=== PATIENT | male | born 1960 | race Caucasian/White ===

== ENCOUNTER 2021-01-01 13:14 | Inpatient (IN) | payer MEDICARE, MEDICAID ==
[~2021-01-01] VITALS: Ht 157.5 cm; Wt 63.5 kg
[2021-01-01] MEDS ORDERED: KEPPRA (13:19)
[2021-01-01] MEDS ORDERED: LASIX (13:19)
[2021-01-01] MEDS ORDERED: IBUPROFEN 600MG TABLET PO ONE (13:45)
[2021-01-01 14:33] LABS: HEMATOCRIT. 36.8 % (42.0-52.0); HEMOGLOBIN. 12.6 g/dL (14.0-18.0); MEAN CORPUSCULAR HEMOGLOBIN 35.4 pg (28.0-32.0); MEAN CORPUSCULAR VOLUME 103.4 fL (80.0-94.0); RED BLOOD CELL COUNT 3.56 mill/uL (4.7-6.1); RED CELL DISTRIBUTION WIDTH 17.6 % (11.6-14.6)
[2021-01-01 14:40] LABS: CHLORIDE 106 mEq/L (98-107)
[2021-01-01 14:42] LABS: INR 1.6; PROTHROMBIN TIME 16.9 sec (9.6-11.0)
[2021-01-01 15:04] LABS: PLATELET ESTIMATE DECREASED
[2021-01-01 15:06] LABS: PLATELET 61 x1000/uL (130-400)
[2021-01-01 18:04] LABS: CLARITY URINE CLEAR (CLEAR); COLOR URINE DARK YELLOW (YELLOW); KETONES URINE NEGATIVE (NEGATIVE); LEUKOCYTE ESTERASE URINE 1+ (NEGATIVE); NITRITE URINE NEGATIVE (NEGATIVE); OCCULT BLOOD URINE NEGATIVE (NEGATIVE); PH URINE 6.5 (4.5-8.0); PROTEIN URINE NEGATIVE (NEGATIVE); SPECIFIC GRAVITY URINE 1.011 (1.005-1.030); UROBILINOGEN URINE 0.2 E.U./dL (0.2-1.0)
[2021-01-01] MEDS ORDERED: VANCOMYCIN 1 G PREMIX 200 ML IV ONE (18:45)
[2021-01-01] MEDS ORDERED: PIPERACILLIN/TAZ 3.375G PREMIX 50 ML IV ONE (18:45)
[2021-01-01 22:10] VITALS: BP 152/81
[2021-01-01] MEDS ORDERED: MORPHINE SULFATE 2 MG/ML CPJ (NOT FOR IM USE) IV PRN (23:00)
[2021-01-01] MEDS ORDERED: ENOXAPARIN 40MG/0.4ML SYR SUBCUT SCH (23:00)
[2021-01-01] MEDS ORDERED: LORAZEPAM 2MG/ML CPJ IV PRN (23:00)
[2021-01-01] MEDS ORDERED: CLONIDINE 0.1MG TABLET PO PRN (23:00)
[2021-01-01] MEDS ORDERED: HYDROCODONE/ACETAMINOPHEN 5/325MG TABLET PO PRN (23:00)
[2021-01-01] MEDS ORDERED: VANCOMYCIN 1 G PREMIX 200 ML IV SCH (23:00)
[2021-01-02] VITALS: BP 152/81
[2021-01-02] MEDS: SODIUM CHLORIDE 0.9% 1,000 ML IV SCH (00:43)
[2021-01-02] MEDS ORDERED: LACT10SO30 MT (00:47)
[2021-01-02] MEDS ORDERED: OMEP20CA14 MT (00:47)
[2021-01-02] MEDS ORDERED: LEVO50TA MT (00:47)
[2021-01-02] MEDS ORDERED: FURO-151 MT (00:47)
[2021-01-02] MEDS ORDERED: THIJ IM (00:47)
[2021-01-02] MEDS ORDERED: KEPP500 MT (00:47)
[2021-01-02] MEDS ORDERED: P20 MT (00:47)
[2021-01-02] MEDS: VANCOMYCIN 750 MG PREMIX 150 ML IV SCH ×3 (06:00→21:26)
[2021-01-02] MEDS ORDERED: ONDANSETRON HCL 4MG/2ML INJ IV PRN (06:30)
[2021-01-02] MEDS ORDERED: MAGNESIUM/ALUMINUM HYDROXIDE/SIMETHICONE 30ML UDC PO PRN (06:30)
[2021-01-02] MEDS ORDERED: DOCUSATE SODIUM 100MG CAPSULE PO PRN (06:30)
[2021-01-02] MEDS ORDERED: ACETAMINOPHEN 325MG TABLET PO PRN (06:30)
[2021-01-02 07:35] LABS: CHLORIDE 107 mEq/L (98-107)
[2021-01-02 07:39] LABS: PHOSPHORUS 3.4 mg/dL (2.5-4.9)
[2021-01-02 08:00] VITALS: BP 124/72
[2021-01-02 08:12] LABS: HEPATITIS B SURFACE ANTIGEN NEGATIVE
[2021-01-02 08:18] LABS: HEMATOCRIT. 32.3 % (42.0-52.0); HEMOGLOBIN. 11.2 g/dL (14.0-18.0); MEAN CORPUSCULAR HEMOGLOBIN 35.8 pg (28.0-32.0); MEAN CORPUSCULAR VOLUME 103.6 fL (80.0-94.0); MEAN PLATELET VOLUME 10.2 fl (7.4-10.4); RED BLOOD CELL COUNT 3.12 mill/uL (4.7-6.1); RED CELL DISTRIBUTION WIDTH 16.8 % (11.6-14.6)
[2021-01-02 08:40] LABS: HEPATITIS A AB IGM NEGATIVE (NEGATIVE)
[2021-01-02] MEDS ORDERED: FOLIC ACID 1MG TABLET PO SCH (09:00)
[2021-01-02 09:08] LABS: PLATELET 41 x1000/uL (130-400)
[2021-01-02] MEDS: LEVOTHYROXINE SODIUM 50MCG TABLET PO SCH (10:13)
[2021-01-02] MEDS: PANTOPRAZOLE SODIUM 40 MG/VIAL IV SCH (10:13)
[2021-01-02] MEDS: LEVETIRACETAM 500MG TABLET PO SCH ×2 (10:13→21:26)
[2021-01-02] MEDS: FUROSEMIDE 40MG TABLET PO SCH (10:14)
[2021-01-02] MEDS: THIAMINE HCL 100MG TABLET PO SCH (10:14)
[2021-01-02] MEDS: MULTIVITAMINS,THER W-MINERALS TABLET PO SCH (10:18)
[2021-01-02] MEDS: PREDNISONE 20MG TABLET PO SCH (10:19)
[2021-01-02 12:00] LABS: PLATELET ESTIMATE MARKEDLY DECREASED
[2021-01-02 16:00] VITALS: BP 123/80
[2021-01-02] MEDS: LACTULOSE 20G/30ML UDC PO SCH ×2 (18:32→21:26)
[2021-01-02] MEDS: PHYTONADIONE 10MG/ML AMP IM SCH (18:32)
[2021-01-02 21:13] LABS: CLARITY URINE CLEAR (CLEAR); COLOR URINE DARK YELLOW (YELLOW); KETONES URINE NEGATIVE (NEGATIVE); LEUKOCYTE ESTERASE URINE NEGATIVE (NEGATIVE); NITRITE URINE NEGATIVE (NEGATIVE); OCCULT BLOOD URINE NEGATIVE (NEGATIVE); PROTEIN URINE NEGATIVE (NEGATIVE); SPECIFIC GRAVITY URINE 1.011 (1.005-1.030); UROBILINOGEN URINE 0.2 E.U./dL (0.2-1.0)
[2021-01-02 21:33] LABS: *AMPHETAMINES SCREEN URINE NEGATIVE (NEGATIVE); *BARBITURATES SCREEN URINE NEGATIVE (NEGATIVE); *BENZODIAZEPINES SCREEN URINE NEGATIVE (NEGATIVE)
[2021-01-02 21:34] LABS: *COCAINE SCREEN URINE NEGATIVE (NEGATIVE); CANNABINOID URINE SCREEN NEGATIVE (NEGATIVE); METHADONE URINE SCREEN NEGATIVE (NEGATIVE); OPIATES URINE SCREEN NEGATIVE (NEGATIVE); PHENCYCLIDINE URINE SCREEN NEGATIVE (NEGATIVE)
[2021-01-02 23:40] VITALS: BP 129/78
[2021-01-03] VITALS: BP 125/72
[2021-01-03] MEDS: AZTREONAM 2 GM in DEXT 5% WATER 100 ML IV SCH ×2 (01:56→15:50)
[2021-01-03] MEDS ORDERED: AMIKACIN SULFATE 450 MG in SODIUM CHLORIDE 0.9% 100 ML IV NR (02:00)
[2021-01-03] MEDS: SODIUM CHLORIDE 0.9% 1,000 ML IV SCH ×2 (06:00→16:25)
[2021-01-03] MEDS: LACTULOSE 20G/30ML UDC PO SCH ×3 (06:00→21:39)
[2021-01-03] MEDS: LEVOTHYROXINE SODIUM 50MCG TABLET PO SCH (06:24)
[2021-01-03 08:55] LABS: HEMATOCRIT. 32.4 % (42.0-52.0); HEMOGLOBIN. 11.3 g/dL (14.0-18.0); MEAN CORPUSCULAR VOLUME 103.2 fL (80.0-94.0); RED BLOOD CELL COUNT 3.14 mill/uL (4.7-6.1); RED CELL DISTRIBUTION WIDTH 16.8 % (11.6-14.6)
[2021-01-03 09:00] LABS: CHLORIDE 109 mEq/L (98-107)
[2021-01-03 09:02] LABS: INR 1.8; PROTHROMBIN TIME 18.1 sec (9.6-11.0)
[2021-01-03] MEDS: PANTOPRAZOLE SODIUM 40 MG/VIAL IV SCH (09:03)
[2021-01-03] MEDS: PHYTONADIONE 10MG/ML AMP IM SCH (09:04)
[2021-01-03] MEDS: MULTIVITAMINS,THER W-MINERALS TABLET PO SCH (09:04)
[2021-01-03] MEDS: FOLIC ACID 1MG TABLET PO SCH (09:04)
[2021-01-03] MEDS: LEVETIRACETAM 500MG TABLET PO SCH ×2 (09:04→21:39)
[2021-01-03 09:05] LABS: PHOSPHORUS 3.4 mg/dL (2.5-4.9)
[2021-01-03] MEDS: FUROSEMIDE 40MG TABLET PO SCH (09:05)
[2021-01-03] MEDS: THIAMINE HCL 100MG TABLET PO SCH (09:05)
[2021-01-03] MEDS: PREDNISONE 20MG TABLET PO SCH (09:05)
[2021-01-03 09:06] LABS: LDL CHOLESTEROL 157 mg/dL (5-100)
[2021-01-03 09:08] LABS: HDL CHOLESTEROL 76 mg/dL (40-59)
[2021-01-03 09:10] LABS: TOTAL IRON BINDING CAPACITY 92 ug/dL (250-450)
[2021-01-03 09:18] LABS: FOLIC ACID (FOLATE) SERUM >20 ng/mL ng/mL (>5.38)
[2021-01-03 09:31] LABS: VITAMIN B12 SERUM >2000 pg/mL pg/mL (211-911)
[2021-01-03] MEDS ORDERED: POTASSIUM CHLORIDE 20MEQ TABLET SR PO SCH (09:45)
[2021-01-03 10:16] LABS: PLATELET 61 x1000/uL (130-400)
[2021-01-03 10:21] LABS: PLATELET ESTIMATE DECREASED
[2021-01-03 11:58] LABS: FERRITIN 1504 ng/mL (22-322)
[2021-01-03] MEDS ORDERED: LIDOCAINE HCL 1% 20ML VIAL (Pyxis) INJ ONE (12:45)
[2021-01-03] MEDS ORDERED: SODIUM BICARBONATE 4% (2.4MEQ) 5ML VIAL IV ONE (12:45)
[2021-01-03 20:00] VITALS: BP_SYST 124; BP_SYST 128; BP_DIAS 68; BP_DIAS 78
[2021-01-03] MEDS ORDERED: ENOXAPARIN 60MG/0.6ML SYR SUBCUT SCH (21:00)
[2021-01-04] VITALS: BP 124/78
[2021-01-04] MEDS: AZTREONAM 2 GM in DEXT 5% WATER 100 ML IV SCH ×2 (01:10→12:28)
[2021-01-04] MEDS: SODIUM CHLORIDE 0.9% 1,000 ML IV SCH ×2 (01:10→12:28)
[2021-01-04 04:00] VITALS: BP 120/78
[2021-01-04] MEDS: LACTULOSE 20G/30ML UDC PO SCH ×3 (06:28→21:07)
[2021-01-04] MEDS: LEVOTHYROXINE SODIUM 50MCG TABLET PO SCH (06:28)
[2021-01-04 06:38] LABS: INR 1.7; PROTHROMBIN TIME 17.5 sec (9.6-11.0)
[2021-01-04 06:40] LABS: HEMATOCRIT. 33.5 % (42.0-52.0); HEMOGLOBIN. 11.6 g/dL (14.0-18.0); MEAN CORPUSCULAR HEMOGLOBIN 35.8 pg (28.0-32.0); MEAN CORPUSCULAR VOLUME 103.6 fL (80.0-94.0); MEAN PLATELET VOLUME 9.5 fl (7.4-10.4); PLATELET 63 x1000/uL (130-400); RED BLOOD CELL COUNT 3.23 mill/uL (4.7-6.1); RED CELL DISTRIBUTION WIDTH 17.1 % (11.6-14.6)
[2021-01-04 07:55] LABS: CHLORIDE 112 mEq/L (98-107)
[2021-01-04 08:00] VITALS: BP 126/81
[2021-01-04] MEDS: MULTIVITAMINS,THER W-MINERALS TABLET PO SCH (10:17)
[2021-01-04] MEDS: PANTOPRAZOLE SODIUM 40 MG/VIAL IV SCH (10:17)
[2021-01-04] MEDS: THIAMINE HCL 100MG TABLET PO SCH (10:18)
[2021-01-04] MEDS: PREDNISONE 20MG TABLET PO SCH (10:18)
[2021-01-04] MEDS: LEVETIRACETAM 500MG TABLET PO SCH ×2 (10:18→21:02)
[2021-01-04] MEDS: FUROSEMIDE 40MG TABLET PO SCH (10:18)
[2021-01-04] MEDS: FOLIC ACID 1MG TABLET PO SCH (10:18)
[2021-01-04 10:50] LABS: PLATELET ESTIMATE DECREASED
[2021-01-04 20:00] VITALS: BP 134/76
[2021-01-05] VITALS (16 sets, daily range): BP systolic 125–156; BP diastolic 71–88
[2021-01-05] MEDS: AZTREONAM 2 GM in DEXT 5% WATER 100 ML IV SCH ×2 (01:53→12:18)
[2021-01-05 06:40] LABS: CHLORIDE 115 mEq/L (98-107)
[2021-01-05] MEDS: SODIUM CHLORIDE 0.9% 1,000 ML IV SCH ×2 (06:55→18:17)
[2021-01-05] MEDS: LEVOTHYROXINE SODIUM 50MCG TABLET PO SCH (06:55)
[2021-01-05] MEDS: LACTULOSE 20G/30ML UDC PO SCH ×3 (06:55→23:11)
[2021-01-05 08:03] LABS: HEMATOCRIT. 32.2 % (42.0-52.0); HEMOGLOBIN. 10.9 g/dL (14.0-18.0); MEAN CORPUSCULAR HEMOGLOBIN 35.6 pg (28.0-32.0); MEAN CORPUSCULAR VOLUME 105.5 fL (80.0-94.0); MEAN PLATELET VOLUME 9.6 fl (7.4-10.4); PLATELET 55 x1000/uL (130-400); RED BLOOD CELL COUNT 3.06 mill/uL (4.7-6.1); RED CELL DISTRIBUTION WIDTH 16.9 % (11.6-14.6)
[2021-01-05] MEDS ORDERED: IOHEXOL-350 100 ML BOTTLE ONE (09:04)
[2021-01-05] MEDS: PREDNISONE 20MG TABLET PO SCH (09:23)
[2021-01-05] MEDS: THIAMINE HCL 100MG TABLET PO SCH (09:23)
[2021-01-05] MEDS: PANTOPRAZOLE SODIUM 40 MG/VIAL IV SCH (09:23)
[2021-01-05] MEDS: FUROSEMIDE 40MG TABLET PO SCH (09:23)
[2021-01-05] MEDS: LEVETIRACETAM 500MG TABLET PO SCH ×2 (09:23→23:11)
[2021-01-05] MEDS: MULTIVITAMINS,THER W-MINERALS TABLET PO SCH (09:23)
[2021-01-05] MEDS: FOLIC ACID 1MG TABLET PO SCH (09:23)
[2021-01-05 12:39] LABS: INR 1.9; PROTHROMBIN TIME 19.3 sec (9.6-11.0)
[2021-01-05] MEDS ORDERED: IOHEXOL-300 100 ML BOTTLE ONE (12:42)
[2021-01-05] MEDS ORDERED: LIDOCAINE HCL 1% 20ML VIAL (Pyxis) INJ ONE (12:42)
[2021-01-05 17:45] LABS: PLATELET ESTIMATE DECREASED
[2021-01-06] MEDS: AZTREONAM 2 GM in DEXT 5% WATER 100 ML IV SCH ×2 (01:27→12:06)
[2021-01-06 04:00] VITALS: BP 135/78
[2021-01-06 06:11] LABS: CHLORIDE 117 mEq/L (98-107)
[2021-01-06 06:12] LABS: HEMATOCRIT. 31.6 % (42.0-52.0); HEMOGLOBIN. 10.6 g/dL (14.0-18.0); MEAN CORPUSCULAR HEMOGLOBIN 35.4 pg (28.0-32.0); MEAN CORPUSCULAR VOLUME 105.1 fL (80.0-94.0); MEAN PLATELET VOLUME 9.3 fl (7.4-10.4); PLATELET 56 x1000/uL (130-400); RED BLOOD CELL COUNT 3.01 mill/uL (4.7-6.1); RED CELL DISTRIBUTION WIDTH 16.8 % (11.6-14.6)
[2021-01-06] MEDS: SODIUM CHLORIDE 0.9% 1,000 ML IV SCH ×2 (06:59→14:45)
[2021-01-06] MEDS: LACTULOSE 20G/30ML UDC PO SCH ×3 (07:00→22:00)
[2021-01-06] MEDS: LEVOTHYROXINE SODIUM 50MCG TABLET PO SCH (07:00)
[2021-01-06 08:00] VITALS: BP 134/82
[2021-01-06] MEDS: LEVETIRACETAM 500MG TABLET PO SCH ×2 (08:59→21:00)
[2021-01-06] MEDS: FOLIC ACID 1MG TABLET PO SCH (08:59)
[2021-01-06] MEDS: PANTOPRAZOLE SODIUM 40 MG/VIAL IV SCH (08:59)
[2021-01-06] MEDS: MULTIVITAMINS,THER W-MINERALS TABLET PO SCH (09:00)
[2021-01-06] MEDS: FUROSEMIDE 40MG TABLET PO SCH (09:00)
[2021-01-06] MEDS: PREDNISONE 20MG TABLET PO SCH (09:00)
[2021-01-06] MEDS: THIAMINE HCL 100MG TABLET PO SCH (09:00)
[2021-01-06 12:00] VITALS: BP 128/77
[2021-01-06 13:30] LABS: NUCLEATED RED BLOOD CELLS 1 /100 WBC; PLATELET ESTIMATE DECREASED
[2021-01-06] MEDS ORDERED: SULF1TAB48 MT (14:41)
[2021-01-06 16:00] VITALS: BP_SYST 122; BP_SYST 128; BP_DIAS 57; BP_DIAS 76
[2021-01-06 20:00] VITALS: BP 138/68
[2021-01-06] MEDS: RIFAXIMIN 550 MG TABLET PO SCH (21:00)
[2021-01-07] VITALS: BP 139/76
[2021-01-07] MEDS: SODIUM CHLORIDE 0.9% 1,000 ML IV SCH
[2021-01-07] MEDS: AZTREONAM 2 GM in DEXT 5% WATER 100 ML IV SCH ×2 (02:04→13:42)
[2021-01-07 04:00] VITALS: BP 131/62
[2021-01-07] MEDS: LACTULOSE 20G/30ML UDC PO SCH ×2 (06:00→13:46)
[2021-01-07] MEDS: LEVOTHYROXINE SODIUM 50MCG TABLET PO SCH (06:47)
[2021-01-07 07:06] LABS: CHLORIDE 117 mEq/L (98-107)
[2021-01-07 07:09] LABS: HEMATOCRIT. 29.9 % (42.0-52.0); HEMOGLOBIN. 10.4 g/dL (14.0-18.0); MEAN CORPUSCULAR HEMOGLOBIN 36.5 pg (28.0-32.0); MEAN CORPUSCULAR VOLUME 104.6 fL (80.0-94.0); RED BLOOD CELL COUNT 2.86 mill/uL (4.7-6.1); RED CELL DISTRIBUTION WIDTH 16.6 % (11.6-14.6)
[2021-01-07 08:00] VITALS: BP 131/81
[2021-01-07 08:19] LABS: PLATELET 54 x1000/uL (130-400)
[2021-01-07 08:26] LABS: PLATELET ESTIMATE DECREASED
[2021-01-07] MEDS: THIAMINE HCL 100MG TABLET PO SCH (09:00)
[2021-01-07] MEDS: RIFAXIMIN 550 MG TABLET PO SCH (09:00)
[2021-01-07] MEDS: PREDNISONE 20MG TABLET PO SCH (09:00)
[2021-01-07] MEDS: PANTOPRAZOLE SODIUM 40 MG/VIAL IV SCH (09:00)
[2021-01-07] MEDS: FOLIC ACID 1MG TABLET PO SCH (09:00)
[2021-01-07] MEDS: LEVETIRACETAM 500MG TABLET PO SCH (09:00)
[2021-01-07] MEDS: FUROSEMIDE 40MG TABLET PO SCH (09:00)
[2021-01-07] MEDS: MULTIVITAMINS,THER W-MINERALS TABLET PO SCH (09:00)
[2021-01-07] MEDS ORDERED: LACT10SO3 MT (11:44)
[2021-01-07 15:35] VITALS: BP 124/78
[2021-01-07 16:00] VITALS: BP 128/78
== END 2021-01-07 16:50 | disposition home health service (06) | DRG 871 ==
LOC: ER 13:14 → 6EST 19:41 → ENRESERV 21:32 → 6EST 01-06 00:05
PROVIDERS: ADMIT Internal Medicine Nephrology; ATTEND Internal Medicine Nephrology
PROC: 0W9G3ZZ Drainage of Peritoneal Cavity, Percutaneous Approach (ICD-10-PCS; 2021-01-03)
PROC: 06H03DZ Insertion of Intraluminal Device into Inferior Vena Cava, Percutaneous Approach (ICD-10-PCS; principal; 2021-01-05)
PROC: B5191ZZ Fluoroscopy of Inferior Vena Cava using Low Osmolar Contrast (ICD-10-PCS; 2021-01-05)
DX: A41.59 Other Gram-negative sepsis (principal); E43 Unspecified severe protein-calorie malnutrition; D68.59 Other primary thrombophilia; I82.432 Acute embolism and thrombosis of left popliteal vein; K76.6 Portal hypertension; C78.00 Secondary malignant neoplasm of unspecified lung; D53.9 Nutritional anemia, unspecified; D69.59 Other secondary thrombocytopenia; E03.9 Hypothyroidism, unspecified; E11.65 Type 2 diabetes mellitus with hyperglycemia; E87.6 Hypokalemia; G40.909 Epilepsy, unspecified, not intractable, without status epilepticus; K40.20 Bilateral inguinal hernia, without obstruction or gangrene, not specified as recurrent; K52.9 Noninfective gastroenteritis and colitis, unspecified; K57.30 Diverticulosis of large intestine without perforation or abscess without bleeding; K70.31 Alcoholic cirrhosis of liver with ascites; B96.1 Klebsiella pneumoniae [K. pneumoniae] as the cause of diseases classified elsewhere; D73.89 Other diseases of spleen; R91.1 Solitary pulmonary nodule; E78.5 Hyperlipidemia, unspecified; Z20.822 Contact with and (suspected) exposure to COVID-19; I10 Essential (primary) hypertension; I25.10 Atherosclerotic heart disease of native coronary artery without angina pectoris; K75.9 Inflammatory liver disease, unspecified; E05.90 Thyrotoxicosis, unspecified without thyrotoxic crisis or storm; R26.2 Difficulty in walking, not elsewhere classified; Z95.828 Presence of other vascular implants and grafts; Z68.25 Body mass index [BMI] 25.0-25.9, adult; Z88.0 Allergy status to penicillin; F19.11 Other psychoactive substance abuse, in remission; R59.0 Localized enlarged lymph nodes
CPT/HCPCS: 36415; 36430; 37191; 49083; 71045; 71275; 74176; 74177; 74181; 76700; 80048; 80053; 80061; 80076; 80202; 80305; 80320; 81003; 82040; 82105; 82140; 82248; 82270; 82378; 82607; 82728; 82746; 82962; 83036; 83540; 83550; 83605; 83615; 83735; 83986; 84100; 84145; 84443; 84484; 85025; 85044; 86705; 86709; 86803; 86850; 86900; 87077; 87186; 87340; 87426; 93005; 93970; 97162; 99291; C1769; C1880; C1893; C9113; J0278; J1644; J2543; J3370; J3430; J3490; J7030; J7040; J7050; J7060; J7512; Q9967; G0480